=== PATIENT | male | born 1970 | race American Indian/Alaskan Native ===

== ENCOUNTER 2016-09-26 08:52 | Emergency (ER) | payer MEDICARE, OTHER ==
[2016-09-26 08:52] VITALS: BMI 38.0
[2016-09-26 09:15] VITALS: BP 136/92; PULSE 67; RESP 20; TEMP 98; O2SAT 98
[2016-09-26] MEDS ORDERED: cefTRIAXone (Rocephin) 250 mg Inj IM STA (09:40)
--- NOTE | 2016-09-26 09:45 | ED PDOC ---
Arrival/HPI - General Historian: Patient - History of Present Illness Time/Duration: < week Symptom Onset: Gradual Symptom Course: Worsening Context: Home - General Chief Complaint: Male Genitourinary Time Seen by Provider: 09/26/16 09:40 - History of Present Illness Narrative History of Present Illness (Text): 09/26/16 09:41 This 46 yo male presents to this ED c/o dysuria, frequency, and penile discharge x 2 days. Patient is concern for STD exposure. Denies testicular pain, groin pain, hematuria, rash, abdominal pain, fever, or recent travel. (Nayeli Mchugh) Past Medical History - Provider Review Nursing Documentation Reviewed: Yes - Infectious Disease Hx of Infectious Diseases: None - Cardiac Hx Cardiac Disorders: Yes Hx Hypertension: Yes (SEE TEXT) Other/Comment: "THEY SAY I HAVE HIGH PRESSURE BUT I ONLY TAKE THE MED. IF I NEED IT - LIKE WHEN I GET A HEADACHE."-PT. INSTRUCTED ON NECESSITY TO TAKE BP MED. DAILY RX. AND DANGER OF SKIPPING MED. - Pulmonary Hx Respiratory Disorders: No - Neurological Hx Neurological Disorder: No - HEENT Hx HEENT Disorder: No - Renal Hx Renal Disorder: No - Endocrine/Metabolic Hx Endocrine Disorders: Yes Hx Diabetes Mellitus Type 2: Yes - Hematological/Oncological Hx Blood Disorders: No - Integumentary Hx Dermatological Disorder: No - Musculoskeletal/Rheumatological Hx Musculoskeletal Disorders: Yes Hx Back Pain: Yes Hx Fractures: Yes (HX: FRACTURE RIGHT THUMB) Hx Herniated Disk: Yes (LUMBAR) Other/Comment: HX: TORN RIGHT ROTATOR CUFF. HX: TORN LIGAMENTS IN RIGHT ANKLE - Gastrointestinal Hx Gastrointestinal Disorders: No - Genitourinary/Gynecological Hx Genitourinary Disorders: No - Psychiatric Hx Psychophysiologic Disorder: No Hx Substance Use: No - Surgical History Hx Orthopedic Surgery: Yes Other/Comment: HX: "SCREWS IN SPINE BUT HAD TO BE [id number] OF L5-S1" . HX: RIGHT ROTATOR CUFF TEAR REPAIRED. HX: TEAR IN LIGAMENTS RIGHT ANKLE- REPAIRED. HX: RIGHT THUMB FRACTURE ORIF WITH PINNING(03/04/16) - Anesthesia Hx Anesthesia: Yes Hx Anesthesia Reactions: No Hx Malignant Hyperthermia: No Family/Social History - Physician Review Nursing Documentation Reviewed: Yes Family/Social History: No Known Family HX Smoking Status: Never Smoked Hx Alcohol Use: No Hx Substance Use: No Allergies/Home Meds Allergies/Adverse Reactions: Allergies No Known Allergies Allergy (Verified 09/26/16 09:15) Home Medications: Home Meds Medication Instructions Recorded Confirmed Methadone [Methadone HCl] 10 mg PO Q6 12/06/14 09/26/16 Insulin Lispro [Humalog (Insulin 4.5 unit SQ Q1 03/04/16 09/26/16 Lispro)] oxyCODONE [oxyCODONE Immediate 15 mg PO QID 03/27/16 09/26/16 Release Tab] Blood Pressure Med. 1 tab PO DAILY 04/02/16 09/26/16 Review of Systems - Review of Systems Constitutional: Normal. absent: Fatigue, Weight Change, Fevers, Night Sweats Eyes: Normal ENT: Normal Respiratory: Normal Cardiovascular: Normal Gastrointestinal: Normal Genitourinary Male: Dysuria, Frequency, Other (penile discharge). absent: Hematuria, Urinary Output Changes Musculoskeletal: Normal Skin: Normal Neurological: Normal Endocrine: Normal Hemo/Lymphatic: Normal Psychiatric: Normal Physical Exam Temperature: Afebrile Blood Pressure: Normal Pulse: Regular Respiratory Rate: Normal Appearance: Positive for: Well-Appearing, Non-Toxic, Comfortable Pain Distress: None Mental Status: Positive for: Alert and Oriented X 3 - Systems Exam Head: Present: Atraumatic, Normocephalic Pupils: Present: PERRL Extroacular Muscles: Present: EOMI Conjunctiva: Present: Normal Mouth: Present: Moist Mucous Membranes Neck: Present: Normal Range of Motion Respiratory/Chest: Present: Clear to Auscultation, Good Air Exchange. No: Respiratory Distress, Accessory Muscle Use Cardiovascular: Present: Regular Rate and Rhythm, Normal S1, S2. No: Murmurs Abdomen: Present: Normal Bowel Sounds. No: Tenderness, Distention, Peritoneal Signs Genitourinary Male: Present: Normal External Genitalia, Circumcised Penis, Penile Discharge (clear), Other ((+) penile implant). No: Lesions, Testicle Tenderness, Penile Swelling, Masses, Erythema, Hernias, Testicle Swelling Back: Present: Normal Inspection Upper Extremity: Present: Normal Inspection. No: Cyanosis, Edema Lower Extremity: Present: Normal Inspection. No: Edema Neurological: Present: GCS=15, CN II-XII Intact, Speech Normal Skin: Present: Warm, Dry, Normal Color. No: Rashes Psychiatric: Present: Alert, Oriented x 3, Normal Insight, Normal Concentration Vital Signs Temp Pulse Resp BP Pulse Ox 09/26/16 09:09 98.0 F 67 20 136/92 H 98 Medical Decision Making Re-evaluation Time: 09:46 Reassessment Condition: Re-examined, Improved ED Course and Treatment: I was available for consultation during PA evaluation. The chart reviewed by me , and I agree with disposition. The documented history was done by the physician director of marketing communications. The documented physical exam was done by physician director of marketing communications. The documented procedures were done by physician director of marketing communications. (Horacio Thakkar) 09/26/16 09:46 Re-evaluation. Patient feels better. Discussed results and plan with patient who expresses understanding. All questions answered and there is agreement with the plan to discharge home with instructions. Patient stable for discharge. Return if symptoms persist or worsen. (Nayeli Mchugh) - Lab Interpretations Lab Results: Lab Results 09/26/16 10:22: Urine Color Yellow, Urine Appearance Clear, Urine pH 6.0, Ur Specific [place] 1.020, Urine Protein Negative, Urine Glucose (UA) Negative, Urine Ketones Negative, Urine Blood Trace-intact H, Urine Nitrate Negative, Urine Bilirubin Negative, Urine Urobilinogen 0.2, Ur Leukocyte Esterase Large H , Urine RBC Pending, Urine WBC Pending - Medication Orders Current Medication Orders: Discontinued Medications Azithromycin (Zithromax) 1,000 mg PO STAT STA PRN Reason: Protocol Stop: 09/26/16 09:42 Ceftriaxone Sodium (Rocephin) 250 mg IM STAT STA PRN Reason: Protocol Stop: 09/26/16 09:41 Disposition/Present on Arrival - Present on Arrival Any Indicators Present on Arrival: No History of DVT/PE: No History of Uncontrolled Diabetes: No Urinary Catheter: No History of Decub. Ulcer: No History Surgical Site Infection Following: None - Disposition Have Diagnosis and Disposition been Completed?: Yes Disposition Time: 10:43 Patient Plan: Discharge - Disposition Diagnosis: Urethritis Disposition: HOME/ ROUTINE Patient Problems: Current Active Problems Problem Status Onset Urethritis Acute Condition: GOOD Discharge Instructions (ExitCare): Cervicitis (ED) Additional Instructions: Call private doctor for follow up visit in 1-2 days. Take medication as instructed with food. Reviewe STD report in 3 days with your doctor. If paositive, have a repeat test done in 4 weeks with your doctor. Have all partners to be tested. Prescriptions: Cephalexin [cephalexin] 500 mg PO BID #14 cap Referrals: Noel Okeefe DO [Primary Care Provider] - Follow up with primary Forms: Unified Inbox (Italian)
[2016-09-26 10:33] LABS: URINE APPEARANCE CLEAR (CLEAR); URINE BILIRUBIN NEGATIVE (NEGATIVE); URINE BLOOD TRACE-INTACT (NEGATIVE); URINE COLOR YELLOW (YELLOW); URINE GLUCOSE (UA) NEGATIVE (NEGATIVE); URINE LEUKOCYTE ESTERASE LARGE Leu/uL (NEGATIVE); URINE NITRATE NEGATIVE (NEGATIVE); URINE PROTEIN NEGATIVE mg/dL (<30 mg/dL); URINE UROBILINOGEN 0.2 E.U./dL (<1 E.U./dL)
[2016-09-26 10:48] LABS: URINE BACTERIA FEW (NEG); URINE EPITHELIAL CELLS 0 - 2 /hpf (0-5); URINE RBC 0 - 2 /hpf (0-2); URINE WBC 20 - 25 /hpf (0-6)
== END 2016-09-26 10:50 | disposition home or self-care (01) ==
LOC: ED 08:52
DX: N34.2 Other urethritis (principal)
CPT/HCPCS: 81001; 87086; 87491; 87591; 96372; 99283; J0696